=== PATIENT | female | born 1930 | race Caucasian/White ===

== ENCOUNTER 2017-03-04 09:11 | Inpatient (IN) ==
[2017-03-04] MEDS ORDERED: NS 1,000 ML IV ONE ×4 (11:03→16:18)
[2017-03-04] MEDS ORDERED: MORPHINE IV ONE (11:03)
[2017-03-04] MEDS ORDERED: ZOFRAN IV ONE (11:03)
--- NOTE | 2017-03-04 11:10 | PROVIDER DOCUMENTATION ---
HPI-Abdominal Pain/GI Problem - General Chief Complaint: Abdominal Pain Stated Complaint: ABD PAIN,DIARRHEA,VOMITING Time Seen by Provider: 03/04/17 10:04 Source: patient, family Allergies/Adverse Reactions: Patient Allergies Allergy/AdvReac Type Severity Reaction Status Date / Time No Known Allergies Allergy Verified 12/26/15 10:43 Home Medications: Home Medication List Medication Instructions Recorded Confirmed Last Taken Type Amiodarone [Cordarone] 200 mg PO DAILY 12/26/15 03/04/17 03/04/17 08:00 History Calcium 800 mg PO BID 12/26/15 03/04/17 03/04/17 08:00 History Cyanocobalamin (Vitamin B-12) 1,000 mcg PO DAILY 12/26/15 03/04/17 03/04/17 08: 00 History [B-12] Furosemide 80 mg PO DAILY 12/26/15 03/04/17 03/04/17 08:00 History Levothyroxine [Synthroid] 0.05 microgm PO HS 12/26/15 03/04/17 03/04/17 08:00 History Lisinopril 40 mg PO BID 12/26/15 03/04/17 03/04/17 08:00 History PRAVAstatin [Pravachol] 20 mg PO QHS 12/26/15 03/04/17 03/03/17 20:00 History Warfarin [Coumadin] 2 mg PO DIRECTED 12/26/15 03/04/17 03/03/17 20:00 History Acetaminophen [Tylenol] 500 mg PO Q4H PRN PRN #0 tablet 07/30/16 03/04/17 Unknown Rx Albuterol Sulfate [Proair Hfa] 8.5 gm IH 3-4XDAY PRN PRN #1 07/30/16 03/04/17 Unknown Rx [email or web address] Fluticasone/Salmet 250/50 INH 1 puff INH RTBID #0 inhaler 07/30/16 03/04/17 Unknown Rx [Advair 250/50 Diskus] Guaifenesin/Codeine [Robitussin-AC] 5 ml PO Q4-6H PRN PRN #0 udc 07/30/16 Unknown Rx - History of Present Illness-ABD Nature of Presenting Problems: began with sharp diffuse abd pain yest, Today pain is less, and dull in lower abd, but still sharp in upper. Has had N/V. No BM in sev days, other than what resulted from enema. No fever. Nothing makes pain better, worse Abdominal Pain Onset Location: reports: generalized abdomen Pain Radiation: reports: no radiation Quality of Pain: reports: sharp Severity in ED: reports: moderate Onset/Duration: reports: other (onset yest) Timing: reports: still present Activities at Onset: reports: none Exposure to sick contacts?: No Modifying Factors: improves with: nothing Associated Symptoms: reports: constipation, vomiting. denies: chest pain, cough , diarrhea, fever/chills, rash, seizure, shortness of breath Last BM: 4 days ago Dark Stools Present?: reports: none noticed Similar Symptoms Previously?: No Recently seen or treated by another doctor?: No Review of Systems - Adult - REVIEW OF SYSTEMS - ADULT Constitutional: reports: no symptoms reported Eyes: reports: no symptoms reported Ears, Nose, Mouth & Throat: reports: no symptoms reported Cardiovascular: reports: no symptoms reported Respiratory: reports: no symptoms reported Gastrointestinal: reports: see HPI Genitourinary: reports: no symptoms reported Musculoskeletal: reports: no symptoms reported Integumentary: reports: no symptoms reported Neurological: reports: no symptoms reported Psychiatric: reports: no symptoms reported Endocrine: reports: no symptoms reported Hematologic/Lymphatic: reports: no symptoms reported Allergic/Immunologic: reports: no symptoms reported Past History - Adult - PAST MEDICAL HISTORY-ADULT Review of Records: reports: Medications Reviewed Major Childhood Illnesses: reports: denies history Cardiovascular: reports: A-Fib, HTN - SOCIAL HISTORY Smoking: denies Physical Exam-General - PHYSICAL EXAM-ADULT Initial Vital Signs Reviewed: Yes - CONSTITUTIONAL General Appearance: appears well, alert, no apparent distress - EYES Eyes: PERRL/EOMI, pink conjunctivae - HEAD, EARS, NOSE, MOUTH & THROAT HENMT: normocephalic/atraumatic, moist mucous membranes, normal ENT inspection - NECK Neck: non-tender, full range of motion, supple, normal inspection - RESPIRATORY Respiratory: chest non-tender, lungs clear, normal breath sounds - CARDIOVASCULAR Cardiovascular: normal peripheral pulses, regular rate, rhythm, no edema - GASTROINTESTINAL (ABDOMEN) Abdominal Exam: soft, other (tinkling Bowel sounds. Mild-crow diffuse tenderness) - MUSCULOSKELETAL Back Exam: normal inspection, no CVA tenderness, no vertebral tenderness Extremity: normal range of motion, non-tender, normal inspection, no pedal edema - SKIN Integumentary: normal color, normal turgor, warm/dry - NEUROLOGIC Neurologic: music instructor II-XII nml as tested, grossly normal, no motor/sensory deficits - PSYCHIATRIC Psych/Mental Status: normal mood/affect, normal thought content, normal thought process, oriented x 3 Progress - PLAN OF CARE/RESULTS Progress/Plan/Lab Results: Vital Signs - 8 hr 03/04/17 09:18 Temperature 97.9 F Pulse Rate 80 Respiratory Rate 18 Blood Pressure 133/73 O2 Sat by Pulse Oximetry 98 Orders Category Date Time Status NPO Diet 03/04/17 11:[address] ABD/PELVIS W/ IV CONT ONLY [CT] Stat Exams 03/04/17 11:01 Ordered KUB ABDOMEN [RAD] Stat Exams 03/04/17 10:52 Ordered AMYLASE [CHEM] Stat Lab 03/04/17 10:59 Uncollected CBC WITH DIFF [HEME] Stat Lab 03/04/17 10:52 Uncollected COMPREHENSIVE METABOLIC PANEL [CHEM] Stat Lab 03/04/17 10:52 Uncollected LIPASE [CHEM] Stat Lab 03/04/17 10:59 Uncollected 0.9% Sodium Chloride Inj [Ns] 1,000 ml Med 03/04/17 11:03 Ordered IV 100 mls/hr Morphine Med 03/04/17 11:03 Once 2 mg IV NOW ONE Ondansetron [Zofran] Med 03/04/17 11:03 Once 8 mg IV NOW ONE Result Diagrams: 03/04/17 11:37 03/04/17 11:37 - XRAY 1 XRAY Study: Abdomen Impression: Abnormal XRAY Interpretation: mult distended loops - CT/MRI 1 CT Study: Abdomen Impression: Abnormal CT Results: mult distended loops of SB, consistant with high grade SB obstruction. - CONSULTS/PCP/HOSPITALIST Notification #1 *Consult/PCP/Hospitalist*: Oscar Time Discussed: 12:16 Reason/Comments: wait on labs, CT before writing orders Consult Disposition: Admit Departure - Departure Time of Disposition Decision: 12:08 DIAGNOSIS: Small bowel obstruction Disposition: ADMITTED INPATIENT 09 Certified Medical Emergency: Emergent Condition: Good Referrals and Follow-Ups: Rory James MD [Primary Care Provider] - - Critical Care Note This patient required my direct & personal management of CC.: No
--- NOTE | 2017-03-04 11:13 | Diag Imaging Result Doc PS360 ---
EXAM: KUB ABDOMEN HISTORY: abd pain TECHNIQUE: Supine abdomen, two views COMPARISON: None. FINDINGS: No free air beneath the diaphragm. There are multiple air distended loops of small bowel. No organomegaly. There are surgical clips in the mid right abdomen. Apparent needle overlies the right superior pubic ramus. IMPRESSION: 1.Distended small bowel loops consistent with at least a partial small bowel obstruction 2.There appears to be a needle overlying the lower right pelvis Electronically signed by Levy Galindo 03/04/2017 11:11 AM
[2017-03-04 11:48] LABS: MANUAL DIFF NEEDED? NO
[2017-03-04 12:02] LABS: INR 1.85; PROTIME 20.2 Seconds (9.2-11.7); PTT 33.6 Seconds (22.0-36.0)
[2017-03-04 12:03] LABS: BASO% 0.1 % (0.0-0.8); HEMATOCRIT 46.2 % (37.0-47.0); HEMOGLOBIN 15.1 g/dL (12.0-16.0); IMM GRAN# 0.03 X1000 (0.0-0.04); IMM GRAN% 0.3 % (0.0-0.5); LYMPH# 1.58 X1000 (1.2-3.4); LYMPH% 13.8 % (20.5-51.1); MCH 31.4 PG (27-31); MCHC 32.7 g/dL (33-37); MONO# 0.52 X1000 (0.11-0.59); MONO% 4.5 % (1.7-9.3); MPV 10.9 FL (7.4-10.4); NEUT% 81.3 % (42.2-75.2); PLT 212 X1000 (130-400); RBC 4.81 XMIL (4.2-5.4)
[2017-03-04 12:38] LABS: ALBUMIN 3.8 g/dL (3.5-5.0); POTASSIUM 3.9 mmol/L (3.5-5.1); TOTAL BILIRUBIN 0.83 mg/dL (0.20-1.00); TOTAL PROTEIN 6.8 g/dL (6.3-8.3)
--- NOTE | 2017-03-04 13:36 | Diag Imaging Result Doc PS360 ---
EXAM: CT ABD/PELVIS W/ IV CONT ONLY INDICATION: SBO COMPARISON: None. FINDINGS: There is bibasilar subsegmental atelectasis and/or scarring. There is cardiomegaly. There has been a previous cholecystectomy. There are a few tiny nonspecific liver hypodensities that probably represent small cysts but are too small to characterize. There is a small amount of fluid layering in the pelvis and tracking around the liver and spleen. There are multiple distended loops of small bowel with air-fluid levels consistent with at least a high-grade partial small bowel obstruction. The distal ileum and colon are not significantly distended. An abrupt transition point is difficult to identify. However, it is probably at the right lower quadrant just to the right of midline. There is extensive diverticulosis coli but there is no evidence of diverticulitis. There are several small renal cysts on the left. There is a tiny hiatal hernia and there are small bilateral inguinal hernias that contain only fat. There is no bowel incarceration. There is extensive aortoiliac atherosclerotic disease. There is no evidence of aortic aneurysm. The remainder of the solid viscera of the abdomen and pelvis and the remainder of the GI tract is essentially unremarkable. There is no evidence of abdominal free gas. The bones are diffusely osteopenic and there are degenerative changes throughout the spine. There is mild vertebral body height loss at L3 and L4 of unknown acuity but likely chronic. IMPRESSION: 1.Small bowel obstruction as described. 2.Small ascites. 3.Other incidental/nonacute findings detailed above. Electronically signed by Macho Walters 03/04/2017 1:34 PM
[2017-03-04] MEDS ORDERED: REGLAN IV ONE (14:32)
[2017-03-04] MEDS ORDERED: MORPHINE IV PRN (16:18)
[2017-03-04] MEDS ORDERED: ZOFRAN IV PRN (16:18)
[2017-03-04] MEDS ORDERED: REGLAN IV PRN (16:18)
--- NOTE | 2017-03-04 16:46 | CONSULTATION ---
DATE OF CONSULTATION: 03/04/2017 REQUESTING PHYSICIAN: Dr. James. REASON FOR CONSULTATION: Small bowel obstruction. HISTORY OF PRESENT ILLNESS: This is an 87-year-old female who has had some abdominal discomfort 2 days ago which progressed to severe pain yesterday evening, mostly crampy in nature and sharp with associated nausea and vomiting multiple times. She has only had 1 small bowel movement in the last few days. She is not passing much gas. Her pain is worsened when riding over rough, bumpy roads. It is lessened with lying still. She currently is not in severe pain. PAST MEDICAL HISTORY: Arrhythmia which I believe is atrial fibrillation, hypothyroidism, hypertension, hyperlipidemia, congestive heart failure which I believe is diastolic in nature, valvular heart disease, osteoarthritis and pulmonary hypertension. PAST SURGICAL HISTORY: 1. Open cholecystectomy. 2. Hysterectomy. 3. Multiple bladder operations. SOCIAL HISTORY: She denies tobacco, alcohol or illicit drug use. FAMILY HISTORY: Reviewed and noncontributory. ALLERGIES: No known drug allergies. HOME MEDICATIONS: Calcium, Synthroid, amiodarone, warfare, pravastatin, lisinopril, furosemide, vitamin B12, Advair, ProAir inhaler, Robitussin and Tylenol. REVIEW OF SYSTEMS: Ten systems reviewed and negative except as noted above. PHYSICAL EXAMINATION: Vital Signs: Temperature 97.9 degrees, pulse 86, respirations 18, blood pressure 166/72, O2 saturation 96%. General: She is an elderly, frail appearing female in no acute distress. She looks her stated age. HEENT: Normocephalic, atraumatic. Extraocular muscles intact. Pupils equal, round, reactive to light. Sclerae anicteric. There is an NG tube in place. Neck: Supple. No thyromegaly. CV: Appears to be regular at this time. Respiratory: Bilateral equal breath sounds. No work of breathing. GI: Soft, not particularly distended. She has hypoactive bowel sounds. Mild tenderness diffusely. No rebound or guarding. No mass or hernias appreciated. Skin: Warm and dry. No rash. Musculoskeletal: Moves all extremities equal and well. LABORATORY: White blood cell count 11,000, hemoglobin 15, platelet count 212,000. INR 1.8. Sodium 141, potassium 3.9, chloride 102, CO2 24, BUN 25, creatinine 0.9, glucose 109. Liver function tests, amylase and lipase were all within normal limits. IMAGING: An abdominal x-ray shows distended small bowel loops consistent with bowel obstruction. A CT scan of her abdomen and pelvis today shows multiple distended loops of small bowel air-fluid levels and what is described as a high-grade partial small bowel obstruction. The distal ileum and colon are decompressed. The transition point is not readily identifiable but probably in the right lower quadrant. There is a small amount of ascites. She has extensive diverticulosis of the colon and extensive aortoiliac atherosclerotic disease and degenerative spine changes. ASSESSMENT/PLAN: An 87-year-old female with small-bowel obstruction likely secondary to adhesions. She does not have an acute abdomen at this time. Her operative risk is certainly elevated given her comorbidities. Cautious observation is warranted at this time. She should be NPO with her NG tube to suction. We should hold her Coumadin in case we do plan an exploration. I will continue to follow along with you. cc: MD Rory Story MD
[2017-03-04] MEDS ORDERED: LABETALOL IV PRN (18:38)
[2017-03-04] MEDS: PROTONIX IV SCH (18:52)
[2017-03-04] MEDS: SODIUM CHLORIDE 0.9% INJ SCH (18:52)
--- NOTE | 2017-03-04 19:01 | HISTORY AND PHYSICAL ---
CHIEF COMPLAINT: Abdominal pain. HISTORY OF PRESENT ILLNESS: Ms. Montoya, 87-year-old white female patient, not doing well last 2 days. Complaining of abdominal pain, cramping in nature, moderate in intensity off and on. The patient was thinking she was constipated. Patient took some enema. Patient started vomiting last night 7 p.m. Patient vomited multiple times whole night till 5 a.m. The patient was feeling very weak. The patient had significant crampy abdominal pain. She came to emergency room. Workup in the emergency room did reveal partial small bowel obstruction. The patient was symptomatic and we decided to admit the patient for further care. Her CT scan revealed multiple distended loops of small bowel suggestive of high-grade partial small bowel obstruction. The patient claims usually she does have loose bowel movement 2-3 times a day but lately she was constipated. Her last colonoscopy many years ago. She denied any bleeding per rectum. She did have mild abdominal distention. The patient had chills but no fever. The patient denied any dysuria or hematuria. The patient is under care of a box car washer for some lesion on her vulva and pubic area for which patient was on antibiotics, detail of which is not available at this time. The patient does have significant arthritic pain in her knees, hip and lower back. Known case of atrial fibrillation on Coumadin. Denied any bleeding. No typical chest pain, palpitation, orthopnea, PND. No unusual cough, expectoration. No runny nose, stuffy nose, sinus drainage. No heat or cold intolerance. No unusual weight loss or weight gain. No further history available at this time. ALLERGIES: No known drug allergy. HOME MEDICATIONS: Include Tylenol, ProAir HFA, amiodarone, calcium, vitamin B12, Advair, Lasix, the patient is on levothyroxine, lisinopril, Pravachol and Coumadin. PAST MEDICAL HISTORY: Significant for coronary artery disease, atrial fibrillation, hyperlipidemia, hypertension, hypothyroidism, congestive heart failure, osteoarthritis, vitamin B12 deficiency, history suggestive of COPD. Patient had cholecystectomy, hysterectomy, bladder surgery for urinary incontinence. The patient is getting treatment from box car washer for lesion on her vulva or pubic area. PERSONAL HISTORY: . Nonsmoker. Denied alcohol or substance abuse. REVIEW OF SYSTEMS: As per HPI. Otherwise unobtainable. FAMILY HISTORY: Noncontributory. PHYSICAL EXAMINATION: GENERAL: Elderly white female patient, in mild distress. VITAL SIGNS: Blood pressure 133/73, pulse 80, respiration 18, temperature 97.9 degrees. SKIN: Senile turgor. No rash or petechiae. HEENT: Head atraumatic, normocephalic. Oden conjunctivae. Anicteric sclerae. Extraocular muscle movement normal. Fundus cannot be penetrated. Good oral hygiene. No tonsillopharyngeal congestion or exudate. Ears and nose benign. NECK: Supple. No JVD, thyromegaly or lymphadenopathy. CHEST: Bilateral good air entry present. Bibasilar crepitation. No rales. CARDIOVASCULAR: S1 and S2. Irregularly irregular, 2/6 systolic murmur at the apex. No gallop or thrill. ABDOMEN: Soft, globular. Diffuse abdominal tenderness. No guarding or rigidity. Scar of previous cholecystectomy well healed. EXTREMITIES: No cyanosis, clubbing. No acute DVT. Crepitation both the knee joints. CORPORATE STAFF ACCOUNTANT: Alert, awake, able to move all 4 limbs. LABORATORY DATA: Revealed WBC count 11.43, hemoglobin 15.1, hematocrit 46.2, platelet count 212,000. PT/INR 1.85, PTT 33.6. Electrolytes were fairly benign. BUN was 25, creatinine 0.9. CT scan and abdominal x-ray results reviewed. CONSIDERATION: Small bowel obstruction. Etiology not known. Could be due to Considering her age, possibility of malignancy cannot be ruled out. Her other problems include atrial fibrillation, congestive heart failure, hypertension, osteoarthritis, cardiac arrhythmia and pacemaker, hypothyroidism, vitamin B12 deficiency. PLAN: Admit the patient. NG tube to low Goo suction. Surgical consult. Pain management. Close observation. Symptomatic care. Overall plan discussed with the patient and she is in agreement. cc: Rory James MD
[2017-03-04] MEDS: ADVAIR 250/50 DISKUS INH SCH (19:56)
[2017-03-04] MEDS: POTASSIUM CHLORIDE 20 MEQ in LR 1,000 ML IV SCH (21:52)
[2017-03-05 06:13] LABS: MANUAL DIFF NEEDED? NO
[2017-03-05 06:17] LABS: BASO% 0.3 % (0.0-0.8); EOS# 0.04 X1000 (0.0-0.7); EOS% 0.4 % (0.0-10.0); HEMATOCRIT 47.9 % (37.0-47.0); HEMOGLOBIN 15.2 g/dL (12.0-16.0); IMM GRAN# 0.03 X1000 (0.0-0.04); IMM GRAN% 0.3 % (0.0-0.5); LYMPH# 3.07 X1000 (1.2-3.4); LYMPH% 27.3 % (20.5-51.1); MCH 30.9 PG (27-31); MCHC 31.7 g/dL (33-37); MCV 97.4 FL (81-99); MONO# 0.58 X1000 (0.11-0.59); MONO% 5.2 % (1.7-9.3); MPV 10.9 FL (7.4-10.4); NEUT% 66.5 % (42.2-75.2); PLT 191 X1000 (130-400); RBC 4.92 XMIL (4.2-5.4)
--- NOTE | 2017-03-05 06:24 | PROGRESS NOTE ---
DATE: 03/05/2017 SUBJECTIVE: Ms. Montoya is doing better. The patient did pass flatus 3-4 times. Abdominal pain is less. No high-grade fever or chills. No chest pain or palpitations. Denied any nausea. The patient does have NG tube. PHYSICAL EXAMINATION: Vital Signs: Her vital signs noted. Neck: Supple. No JVD. Lungs: Bibasilar crepitations. Heart: S1 and S2 heard. Irregularly irregular. Abdomen: Soft, globular. Bowel sounds present, hypoactive. Extremities: No cyanosis, clubbing. No acute DVT. SPACE SCIENCES DIRECTOR: Alert, awake. Able to move all 4 limbs. LABORATORY DATA: Lab data ordered for this morning. Results are pending. CONSIDERATION: 1. The patient admitted with partial small bowel obstruction. Labs and x-ray results pending. The patient is passing flatus. 2. Her other problems include atrial fibrillation. Anticoagulation is on hold. Risks and benefits of holding anticoagulation again explained to patient and another daughter today. 3. History of congestive heart failure. Clinically seems to be well compensated. I am going to give her a small dose of intravenous Lasix today. 4. Her other problems include osteoarthritis. 5. Hypothyroidism. PLAN: Labs and medications patient done yesterday reviewed. Surgeon following patient with us. Overall plan discussed with patient and daughter. They are in agreement. cc: Rory James MD
[2017-03-05 06:25] LABS: INR 2.31; PROTIME 25.6 Seconds (9.2-11.7)
[2017-03-05 06:36] LABS: ALBUMIN 3.5 g/dL (3.5-5.0); CALCIUM 8.4 mg/dL (8.8-10.2); MAGNESIUM 2.2 mg/dL (1.5-2.7); POTASSIUM 4.2 mmol/L (3.5-5.1); TOTAL BILIRUBIN 1.04 mg/dL (0.20-1.00); TOTAL PROTEIN 6.8 g/dL (6.3-8.3)
[2017-03-05] MEDS: ADVAIR 250/50 DISKUS INH SCH ×2 (07:47→19:42)
--- NOTE | 2017-03-05 08:51 | Diag Imaging Result Doc PS360 ---
EXAM: FLAT/UPRIGHT ABD/1 VIEW CHEST INDICATION: sbo TECHNIQUE: Four views COMPARISON: Abdominal radiograph dated 03/04/2017 and chest radiograph dated 09/17/2016. FINDINGS: There has been placement of an NG tube. The tip projects below the diaphragm and is assumed to be in the lumen of the stomach in expected position. There is still patchy small bowel gas throughout the abdomen but the degree of distention has probably improved. There is no definite large volume free abdominal gas. The inspiration is suboptimal. There is stable cardiomegaly. There is evidence of prior granulomatous disease, stable. There is probably minimal atelectasis at the lung bases. The lungs are grossly clear, otherwise. IMPRESSION: 1.Interval placement of NG tube in the expected position. 2.Suggestion of modest improvement of the distention of small bowel. 3.Suggestion of mild bibasilar atelectasis. Electronically signed by Macho Walters 03/05/2017 8:49 AM
[2017-03-05] MEDS: POTASSIUM CHLORIDE 20 MEQ in LR 1,000 ML IV SCH ×2 (11:06→21:49)
[2017-03-05] MEDS: ZOFRAN IV PRN ×2 (15:29→23:29)
[2017-03-05] MEDS: PROTONIX IV SCH (17:40)
[2017-03-05] MEDS: SODIUM CHLORIDE 0.9% INJ SCH (17:40)
--- NOTE | 2017-03-05 18:14 | PROGRESS NOTE ---
DATE: 03/05/2017 SUBJECTIVE: The patient reports she has had 2 bowel movements today. However, she has also been nauseated and feeling sick to her stomach. She continues to have some abdominal pain. OBJECTIVE: Vital Signs: She is afebrile. Vital signs are stable. General: She is alert and oriented x3. No acute distress. Gastrointestinal: Soft nondistended, mild tenderness diffusely. No rebound or guarding. IMAGING: Her abdominal x-ray this morning showed some improvement in the gaseous small bowel distention. LABORATORY: White blood cell count 11,000, hemoglobin 15. INR 2.3. Sodium 146, potassium 4.2, chloride 109, CO2 of 21, BUN 21, creatinine 0.9. ASSESSMENT AND PLAN: An 87-year-old female with partial small bowel obstruction. We will continue nasogastric tube decompression, n.p.o. hydration and serial abdominal exams and x-rays. cc: MD Rory Story MD
[2017-03-06 06:45] LABS: INR 1.89; PROTIME 20.7 Seconds (9.2-11.7)
--- NOTE | 2017-03-06 06:48 | PROGRESS NOTE ---
DATE: 03/06/2017 SUBJECTIVE: Ms. Montoya is doing fair. The patient was feeling sick at her stomach yesterday complaining of nausea. No high-grade fever or chills. The patient is still having loose bowel movement. No typical chest pain. No unusual shortness of breath. Denied any unusual cough or expectoration. OBJECTIVE: Her vital signs reviewed. Patient is afebrile.Neck: Supple. No JVD. Lungs: Bibasilar crepitations. Heart: S1 and S2 heard. Abdomen: Soft, globular. Bowel sounds present. Vague upper abdominal tenderness. No guarding or rigidity. Extremities: No cyanosis or clubbing. No acute DVT. TRASH HAULER: Alert, awake and able to move all 4 limbs. CONSIDERATION: Upper abdominal pain could be due to gastritis. The patient does have a small bowel obstruction on IV hydration and NG tube to low [place]omco suction. Surgeon following the patient with us. Atrial fibrillation on Coumadin. Her last pro-time was therapeutic. Her anticoagulation is on hold. Other problems include congestive heart failure, hypothyroidism, osteoarthritis, cardiac arrhythmia and pacemaker. PLAN: Overall plan and prognosis discussed with the patient and family and they are in agreement. cc: Rory James MD
[2017-03-06 06:50] LABS: ALBUMIN 3.7 g/dL (3.5-5.0); CALCIUM 8.7 mg/dL (8.8-10.2); POTASSIUM 4.8 mmol/L (3.5-5.1); TOTAL BILIRUBIN 1.14 mg/dL (0.20-1.00)
[2017-03-06 07:07] LABS: BASO% 0.1 % (0.0-0.8); HEMATOCRIT 48.2 % (37.0-47.0); HEMOGLOBIN 15.3 g/dL (12.0-16.0); IMM GRAN# 0.03 X1000 (0.0-0.04); IMM GRAN% 0.3 % (0.0-0.5); LYMPH# 0.89 X1000 (1.2-3.4); LYMPH% 8.5 % (20.5-51.1); MANUAL DIFF NEEDED? YES; MCH 31.4 PG (27-31); MCHC 31.7 g/dL (33-37); MCV 98.8 FL (81-99); MONO# 0.48 X1000 (0.11-0.59); MONO% 4.6 % (1.7-9.3); MPV 11.1 FL (7.4-10.4); NEUT% 86.5 % (42.2-75.2); PLT 185 X1000 (130-400); RBC 4.88 XMIL (4.2-5.4)
[2017-03-06 07:22] LABS: BANDS 2 % (0-1); LYMPHS 10 % (21-51); MONO 4 % (1-9)
[2017-03-06 07:56] LABS: MAGNESIUM 2.2 mg/dL (1.5-2.7)
--- NOTE | 2017-03-06 08:06 | Diag Imaging Result Doc PS360 ---
EXAM: ABDOMEN FLAT/UPRIGHT - 03/06/2017 HISTORY: pain TECHNIQUE: Supine and upright abdomen COMPARISON: 03/05/2017 FINDINGS: There is gas visible in nondistended colon. There is gas visible within a few small bowel loops but there is no substantial gaseous small bowel distention identified. There is no obvious free air. There is a nasogastric tube with its tip at the expected location of the proximal most stomach. There are surgical clips in the right upper quadrant. IMPRESSION: Nonspecific bowel gas pattern. Nasogastric tube is tip at the proximal most stomach. Electronically signed by Nick Link 03/06/2017 8:04 AM
[2017-03-06] MEDS: POTASSIUM CHLORIDE 20 MEQ in LR 1,000 ML IV SCH ×2 (10:17→18:14)
--- NOTE | 2017-03-06 12:44 | PROGRESS NOTE ---
DATE: 03/06/2017 SUBJECTIVE: The patient denies abdominal pain or vomiting overnight. She has had several bowel movements. OBJECTIVE: She is afebrile. Vital signs are stable.General: She is weak appearing, but in no acute distress. She is alert and oriented x3. Respiratory: No work of breathing. Gastrointestinal: Soft, nondistended. She has hypoactive bowel sounds. She is nontender. IMAGING: Abdominal x-ray shows nonspecific bowel gas pattern. No obvious bowel obstruction identified. There is gas in the nondistended colon. ASSESSMENT/PLAN: An 87-year-old female with partial small bowel obstruction. This appears to be resolving. We will go ahead and remove her NG tube and start her on a clear liquid diet. We will consult physical therapy for her deconditioning. cc: MD Rory Story MD
[2017-03-06] MEDS: SODIUM CHLORIDE 0.9% INJ SCH (17:53)
[2017-03-06] MEDS: PROTONIX IV SCH (17:53)
[2017-03-06] MEDS: ADVAIR 250/50 DISKUS INH SCH (19:46)
[2017-03-07 06:28] LABS: MANUAL DIFF NEEDED? NO
[2017-03-07 06:33] LABS: BASO% 0.1 % (0.0-0.8); EOS# 0.01 X1000 (0.0-0.7); EOS% 0.1 % (0.0-10.0); HEMATOCRIT 45.7 % (37.0-47.0); HEMOGLOBIN 14.7 g/dL (12.0-16.0); IMM GRAN# 0.04 X1000 (0.0-0.04); IMM GRAN% 0.5 % (0.0-0.5); MCH 31.4 PG (27-31); MCHC 32.2 g/dL (33-37); MCV 97.6 FL (81-99); MONO# 0.41 X1000 (0.11-0.59); MONO% 4.9 % (1.7-9.3); MPV 10.9 FL (7.4-10.4); NEUT% 82.4 % (42.2-75.2); PLT 179 X1000 (130-400); RBC 4.68 XMIL (4.2-5.4)
[2017-03-07 06:39] LABS: INR 1.99; PROTIME 21.8 Seconds (9.2-11.7)
[2017-03-07] MEDS ORDERED: TYLENOL PO PRN (06:49)
[2017-03-07] MEDS ORDERED: VENTOLIN HFA INH PRN (06:49)
[2017-03-07 06:52] LABS: AGAP 14; ALBUMIN 3.3 g/dL (3.5-5.0); ALKALINE PHOSPHATASE 80 U/L (32-104); BUN 21 mg/dL (8-22); CALCIUM 8.8 mg/dL (8.8-10.2); CHLORIDE 108 mmol/L (98-107); COSMO 288; GOT 19 U/L (10-30); GPT 22 U/L (10-36); POTASSIUM 4.8 mmol/L (3.5-5.1); SODIUM 142 mmol/L (136-145); TCO2 20 mmol/L (25-35); TOTAL BILIRUBIN 0.96 mg/dL (0.20-1.00)
[2017-03-07] MEDS ORDERED: COUMADIN PO SCH (07:00)
[2017-03-07] MEDS: POTASSIUM CHLORIDE 20 MEQ in LR 1,000 ML IV SCH ×3 (07:03→21:10)
[2017-03-07] MEDS: ZOFRAN IV PRN ×2 (07:03→09:39)
--- NOTE | 2017-03-07 07:07 | PROGRESS NOTE ---
DATE: 03/07/2017 SUBJECTIVE: Ms. Montoya is doing better. We removed her NG tube yesterday. No nausea or vomiting, abdominal pain is improving. The patient is still passing flatus and having bowel movement. She is tolerating clear liquid well. No typical chest pain or palpitations. No unusual shortness of breath. OBJECTIVE: Vital signs: Noted. Neck: Is supple. No JVD. Lungs: Bilateral good air entry present. Few basal crepitations. CVS: S1 and S2 heard. 2/6 systolic murmur at the apex. Abdomen: Soft, globular. Bowel sounds present. Tenderness is much improved. Extremities: No cyanosis, clubbing. No acute DVT. PRINCIPAL PROCESS ENGINEER: Alert, awake, able to move all 4 limbs. LABORATORY: The patient's CBC done today fairly within acceptable range. WBC count 8.3, hemoglobin 14.7, hematocrit 45.7, platelet count 179,000. PT/INR 1.99. Electrolyte results are pending. X-ray done yesterday reviewed. CONSIDERATION: 1. Partial small bowel obstruction. 2. The patient does have atrial fibrillation. 3. History of congestive heart failure. 4. Hypothyroidism. 5. Osteoarthritis. 6. Coronary artery disease. Overall the patient is getting better. I am going to advance her diet to full liquid diet. Physical therapy evaluation. Close observation. Appreciate surgery's help for this patient. I am going to resume some of her home medicines. cc: Rory James MD
[2017-03-07] MEDS ORDERED: ADVAIR 250/50 DISKUS INH SCH (07:30)
[2017-03-07] MEDS: ADVAIR 250/50 DISKUS INH SCH ×2 (07:45→07:46)
[2017-03-07] MEDS: VITAMIN B-12 PO SCH (09:30)
[2017-03-07] MEDS: CORDARONE PO SCH (09:31)
[2017-03-07] MEDS: LASIX PO SCH (09:31)
[2017-03-07] MEDS: PRINIVIL PO SCH ×2 (09:31→21:11)
--- NOTE | 2017-03-07 14:52 | PROGRESS NOTE ---
DATE: 03/07/2017 SUBJECTIVE: The patient denies abdominal pain. She is drinking liquids. She had a couple of episodes of gagging after trying to swallow a pill; however, she has also had 2 bowel movements. OBJECTIVE: Vital Signs: She is afebrile. Vital signs are stable. General: Alert and oriented x3. No acute distress. Gastrointestinal: Soft. Minimal tenderness. No significant distention. She has good bowel sounds. ASSESSMENT AND PLAN: An 87-year-old female with partial small-bowel obstruction that appears to be resolving. We are going to advance her to a soft diet today and if she is stable overnight, I expect she could go home tomorrow. cc: MD Rory Story MD
[2017-03-07] MEDS: SODIUM CHLORIDE 0.9% INJ SCH (18:57)
[2017-03-07] MEDS: PROTONIX IV SCH (18:57)
[2017-03-07] MEDS: PRAVACHOL PO SCH (21:11)
[2017-03-08] MEDS: ZOFRAN IV PRN ×2 (04:34→08:47)
[2017-03-08 07:41] LABS: ALBUMIN 3.2 g/dL (3.5-5.0); CALCIUM 8.3 mg/dL (8.8-10.2); TOTAL BILIRUBIN 0.97 mg/dL (0.20-1.00); TOTAL PROTEIN 6.2 g/dL (6.3-8.3)
[2017-03-08] MEDS: POTASSIUM CHLORIDE 20 MEQ in LR 1,000 ML IV SCH ×2 (08:41→21:04)
[2017-03-08] MEDS: CORDARONE PO SCH (08:41)
[2017-03-08] MEDS: VITAMIN B-12 PO SCH (08:41)
[2017-03-08] MEDS: LASIX PO SCH (08:42)
--- NOTE | 2017-03-08 08:53 | PROGRESS NOTE ---
DATE: 03/08/2017 SUBJECTIVE: Ms. Montoya is doing fair this morning. She was complaining of being nauseous. The patient did not have bowel movement since yesterday. Not passing flatus. Some bloating. No typical chest pain or palpitation. She did have mild chills but no fever. The patient admitted with partial small bowel obstruction. Her diet was advanced to GI soft diet yesterday. The patient ate well yesterday. She has known case of atrial fibrillation, coronary artery disease, osteoarthritis, hypothyroidism, gastritis. OBJECTIVE: Her vital signs noted. Neck supple. No JVD, thyromegaly, or lymphadenopathy. Chest: Bilateral good air entry present. CVS: S1 and S2 heard. Irregularly irregular. Abdomen soft, globular. Bowel sounds hypoactive. Extremities: No cyanosis, clubbing. No acute DVT. Crepitation in both the knee joints. SENIOR SCIENCE CONSULTANT: Alert, awake, able to move all 4 limbs. CONSIDERATION: Partial small bowel obstruction. The patient had nausea and some gagging today. I am going to change the diet from GI soft to full liquid diet. Repeat abdominal x-ray today. I am going to watch the patient today. Her other problems includes 1. Hypertension. The patient was on 40 mg of lisinopril twice a day. I am going to gradually increase her lisinopril to 20 mg b.i.d. today. 2. Atrial fibrillation, on Coumadin. ProTime is therapeutic with 1 mg. Will recheck tomorrow. 3. Osteoarthritis. 4. Gastritis. PLAN: Overall plan discussed with patient and family, and they are in agreement. cc: Rory James MD
--- NOTE | 2017-03-08 09:38 | Diag Imaging Result Doc PS360 ---
ABDOMEN FLAT/UPRIGHT - 03/08/2017 INDICATION: pain TECHNIQUE: COMPARISON: 03/06/2017 FINDINGS: There are some persistently, abnormally gas dilated loops of small bowel predominantly in the lower abdomen and pelvis. These measure up to about 4.1 cm. No free air. There is very little colonic gas. IMPRESSION: Persistent small bowel obstruction which is probably partial. Electronically signed by Miguelangel Hansen 03/08/2017 9:36 AM
[2017-03-08] MEDS: PRINIVIL PO SCH ×2 (12:53→21:04)
[2017-03-08] MEDS: PROTONIX IV SCH (18:35)
[2017-03-08] MEDS: SODIUM CHLORIDE 0.9% INJ SCH (18:35)
[2017-03-08] MEDS: PRAVACHOL PO SCH (21:04)
[2017-03-09 06:00] LABS: MANUAL DIFF NEEDED? NO
[2017-03-09 06:06] LABS: BASO% 0.2 % (0.0-0.8); EOS# 0.11 X1000 (0.0-0.7); EOS% 1.9 % (0.0-10.0); HEMATOCRIT 45.5 % (37.0-47.0); HEMOGLOBIN 14.5 g/dL (12.0-16.0); LYMPH# 1.23 X1000 (1.2-3.4); LYMPH% 21.5 % (20.5-51.1); MCH 31.2 PG (27-31); MCHC 31.9 g/dL (33-37); MCV 97.8 FL (81-99); MONO# 0.48 X1000 (0.11-0.59); MONO% 8.4 % (1.7-9.3); PLT 171 X1000 (130-400); RBC 4.65 XMIL (4.2-5.4)
[2017-03-09 06:07] LABS: INR 1.73; PROTIME 18.8 Seconds (9.2-11.7)
[2017-03-09 06:24] LABS: ALBUMIN 3.2 g/dL (3.5-5.0); CALCIUM 8.6 mg/dL (8.8-10.2); POTASSIUM 4.8 mmol/L (3.5-5.1); TOTAL BILIRUBIN 1.06 mg/dL (0.20-1.00); TOTAL PROTEIN 5.7 g/dL (6.3-8.3)
[2017-03-09] MEDS: VITAMIN B-12 PO SCH (09:04)
[2017-03-09] MEDS: LASIX PO SCH ×2 (09:04→20:44)
[2017-03-09] MEDS: CORDARONE PO SCH (09:04)
[2017-03-09] MEDS: PRINIVIL PO SCH ×2 (09:04→20:44)
[2017-03-09] MEDS: POTASSIUM CHLORIDE 20 MEQ in LR 1,000 ML IV SCH ×3 (09:18→23:22)
--- NOTE | 2017-03-09 10:01 | Diag Imaging Result Doc PS360 ---
EXAM: ABDOMEN FLAT/UPRIGHT HISTORY: pain TECHNIQUE: Flat and upright, three views COMPARISON: 03/08/2017 FINDINGS: The bowel loops in the mid and lower abdomen are not distended. No organomegaly. A curved needle overlies the lower right pelvis. Mild degenerative spine changes. Moderate atherosclerosis. IMPRESSION: Stable exam. Electronically signed by Levy Galindo 03/09/2017 9:59 AM
--- NOTE | 2017-03-09 11:48 | PROGRESS NOTE ---
DATE: 03/09/2017 SUBJECTIVE: Ms. Montoya is doing fair. She still has vague abdominal pain, some nausea. Yesterday patient resumed her GI soft diet by surgeon. The patient tolerated it fair but then again today she does have some nausea and vague abdominal pain. She did have a bowel movement yesterday and today. No typical chest pain. No high-grade fever or chills. No dysuria or hematuria. OBJECTIVE: Vital signs: Reviewed. Neck: Supple. No JVD. Lungs: Bibasilar crepitations. Heart: S1 and S2 heard. Abdomen: Soft, globular. Mild upper abdominal tenderness. No guarding or rigidity. Extremities: No cyanosis, clubbing. Minimal swelling. BOW REPAIRER CUSTOM: Alert, awake. Able to move all 4 limbs. LAB DATA: Done today, WBC count 5.73, hemoglobin 14.5, hematocrit 45.5, platelet count 171,000. PT/INR was 1.73. Electrolytes were benign. ASSESSMENT AND PLAN: I am going to increase her Coumadin to 1.5 mg. I do not think the patient is ready to be discharged yet with her abdominal pain and nausea. We will continue monitoring patient. I will check her protime in the morning. Re-evaluate patient tomorrow. If clinical condition permits, we will plan discharging patient tomorrow. cc: Rory James MD
[2017-03-09] MEDS: SODIUM CHLORIDE 0.9% INJ SCH (18:13)
[2017-03-09] MEDS: PROTONIX IV SCH (18:13)
[2017-03-09] MEDS: PRAVACHOL PO SCH (20:43)
[2017-03-09] MEDS ORDERED: COUMADIN PO SCH ×2 (21:00)
[2017-03-10 05:58] LABS: INR 1.49
[2017-03-10] MEDS ORDERED: COUMADIN PO ONE (06:56)
--- NOTE | 2017-03-10 07:09 | DISCHARGE SUMMARY ---
ADMISSION DATE: 03/04/2017 DISCHARGE DATE: FINAL DISCHARGE DIAGNOSES: 1. Small bowel obstruction, resolved. 2. Atrial fibrillation. 3. Cardiac arrhythmia and pacemaker. 4. Hypertension. 5. Osteoarthritis. 6. Hypothyroidism. 7. Gastritis. 8. History suggestive of congestive heart failure. 9. Chronic obstructive pulmonary disease. HISTORY OF PRESENT ILLNESS: Ms. Montoya is an 87-year-old, white, female patient admitted with abdominal pain, nausea, vomiting, constipation. Her workup in the ER did reveal small bowel obstruction. The patient was admitted. Surgical consult obtained. We placed NG tube to low Gomco suction. Started her on IV hydration. Surgical consult obtained. The patient was treated conservatively. The patient improved. She started having bowel movements. Her abdominal pain improved. Nausea improved. NG tube was discontinued by surgeon. We gradually advance her diet. The patient did have problem with abdominal pain and some nausea. We changed back to a full liquid diet and then again to GI soft diet. The patient is tolerating it well. The patient had a good day yesterday. She tolerated food well. She is having bowel movement. No nausea or vomiting. The patient is eager to go home. Her abdominal x-ray reported yesterday was stable. PHYSICAL EXAMINATION: Vital Signs: Her vital signs reviewed. Neck: Supple. No JVD. Lungs: Bibasilar crepitations. Heart: S1 and S2 heard. Abdomen: Soft, globular. Bowel sounds present. Nontender. Extremities: No cyanosis, clubbing. No acute DVT. Crepitation in both the knee joints. Limited mobility of the knee. No acute synovitis. PUBLISHING DIRECTOR: Alert, awake. Able to move all 4 limbs. HOSPITAL COURSE: Overall, patient is doing better, eager to go home, and I am planning to discharge her home. Her prothrombin time, INR 1.49. I am going to resume her Coumadin at 2 mg by mouth at bedtime. Electrolytes done yesterday were fairly benign. CBC was good. WBC count 5.73, hemoglobin 14.5, hematocrit 45.5, platelet count 171,000. Her abdominal x-ray was stable. CT scan of the abdomen and pelvis done revealed small bowel obstruction, small ascites. Overall, the patient received maximum benefit of hospitalization. Advised patient to eat small frequent meals. Monitor blood pressure at home. Home health nurse will do the blood work in 3-4 days. Follow up with me in a week. Decrease her lisinopril to 20 mg twice a day. If blood pressure goes up, they will advance it to 40 mg. in case of more distress, call us back or go to the emergency room. cc: Rory James MD
[2017-03-10] MEDS: POTASSIUM CHLORIDE 20 MEQ in LR 1,000 ML IV SCH (07:53)
[2017-03-10] MEDS: ADVAIR 250/50 DISKUS INH SCH (08:37)
--- NOTE | 2017-03-10 08:37 | PROGRESS NOTE ---
DATE: 03/10/2017 Ms. Veronica Montoya is an 87-year-old white female, a patient Dr. James, who is admitted with a small bowel obstruction versus ileus. It appears that she has improved on her own. Flat and upright abdominal film yesterday showed no distended loops of bowel. She is having flatus and bowel movements. Her abdomen is soft. She is tolerating a diet. Dr. James has said that she could go home with a followup in his outpatient office. cc: MD Rory Gallardo MD
[2017-03-10] MEDS: CORDARONE PO SCH (08:38)
[2017-03-10] MEDS: PRINIVIL PO SCH (08:38)
[2017-03-10] MEDS: LASIX PO SCH (08:38)
[2017-03-10] MEDS: VITAMIN B-12 PO SCH (08:38)
[2017-03-10 10:13] VITALS: BP 110/43
== END 2017-03-10 12:19 | disposition home health service (06) ==
LOC: ED 09:11 → 4N 16:01
PROVIDERS: ADMIT Internal Medicine; ATTEND Internal Medicine